=== PATIENT | female | born 1935 ===

== ENCOUNTER 2018-02-26 10:38 | Outpatient (CLI) | payer OTHER ==
[~2018-02-26] VITALS: Ht 162.6 cm; Wt 59.9 kg
== END 2018-02-26 11:00 | disposition home or self-care (01) ==
LOC: OFIC 805 10:38
DX: H61.23 Impacted cerumen, bilateral (principal); H90.3 Sensorineural hearing loss, bilateral

== ENCOUNTER 2018-03-21 12:18 | Outpatient (CLI) | payer OTHER ==
[~2018-03-21] VITALS: Ht 152.4 cm; Wt 59.9 kg
== END 2018-03-21 12:35 | disposition home or self-care (01) ==
LOC: OFIC 805 12:18
DX: H91.8X3 Other specified hearing loss, bilateral (principal); H93.13 Tinnitus, bilateral

== ENCOUNTER 2018-07-30 11:15 | Emergency (ER) | payer OTHER ==
[~2018-07-30] VITALS: Ht 154.9 cm; Wt 59.9 kg
[2018-07-30] MEDS ORDERED: VASOTEC2.5 MG (11:24)
[2018-07-30] MEDS ORDERED: SIMVASTATIN10 MG (11:25)
[2018-07-30] MEDS ORDERED: SYNTHROID75 MCG (11:25)
== END 2018-07-30 13:52 | disposition home or self-care (01) ==
LOC: ER 11:15
DX: I16.0 Hypertensive urgency (principal); I10 Essential (primary) hypertension